=== PATIENT | male | born 1955 | race Caucasian/White ===

== ENCOUNTER 2024-04-08 21:26 | Emergency (ER) | payer OTHER, SELFPAY ==
[2024-04-08 21:51] VITALS: BP 164/78; PULSE 71; RESP 16; TEMP 36.4; O2SAT 97; BMI 27.8
--- NOTE | 2024-04-08 22:54 | ED.GENADULT ---
HPI - General Adult General Chief complaint: Back Injury/Pain Stated complaint: fell off steps/hurt back Time Seen by Provider: 04/08/24 22:53 History of Present Illness HPI narrative: slipped on concrete step while carries tools. fell down 2 steps. landed on back, left side. No head or neck pain. Some shortness of breath during pain spasms. Not on blood thinners. Happened around 7pm 68-year-old man presenting to the emergency department with concern of back pain. Appears to be having some spasms. Was caring tools slipped on concrete steps fell down a couple steps. Had a specific area of impact in the left low back area. Denies hitting head or neck and without pain there either. Does have history of chronic low back pain and status post I believe fusion of L4-5 per his description. This surgery was helpful. He notes that with the initial fall he just laid there for some time before he could mobilize. Walked into the emergency department somewhat hunched over. Has been having spasms of pain which during exam he admits are improving a little bit through the right low mid back around to the side. No hematuria is noted. They are planning a trip leaving it a week? for [place] and I believe [place]. Are concerned about being able to tolerate this adventure. This fall occurred about 4 hours prior to this evaluation. Did take 800 mg of ibuprofen around that time. Related Data Home Medications ?Medication ?Instructions ?Recorded ?Confirmed No Known Home Medications 04/08/24 04/08/24 Allergies Allergy/AdvReac Type Severity Reaction Status Date / Time fenoprofen Allergy Unknown Verified 04/09/24 00:20 Sulfa drugs Allergy Unknown Uncoded 04/09/24 00:20 Review of Systems Status of ROS: Reports: 6 or more systems reviewed and unremarkable except as noted in History and below Exam Narrative: Exam Narrative: Mr. Lopez appears little tremulous. Little flushed in his face initially. This all faded is a little bit during this interview/exam. Head looks to be atraumatic. Neck is supple. Back is nontender. Vaguely uncomfortable to palpation though in the right lower ribs. Not discretely tender/no point tenderness. Oppositional compression does not listed further pain. Is breathing easily at this time and lungs would appear to be clear. Examination of the lower back is without pain over the SI joint areas. There is a low well-healed midline surgical scar in the lumbar spine. He has a half softball size quite firm swelling in the left upper buttock. Tender to palpation here. Some central bruising/erythema. Well demarcated. No abdominal pain to palpation otherwise. Const: Vital Signs, click to edit/add: Vital Signs - 24 hr 04/08/24 21:51 04/09/24 00:46 Temperature 97.5 F L Pulse Rate [Left P ulse Oximeter] 71 62 Respiratory Rate 16 16 Blood Pressure [Ri t Upper Arm] 164/78 H 141/80 H Pulse Oximetry 97 97 Oxygen Delivery Me thod Room Air Room Air Documenting provider has reviewed patient's vital signs: yes Course Vital Signs Vital signs: Initial Vital Signs Temperature 97.5 F L 04/08/24 21:51 Temperature Source Temporal Artery Scan 04/08/24 21:51 Pulse Rate 71 04/08/24 21:51 Pulse Rhythm Regular 04/08/24 21:51 Respiratory Rate 16 04/08/24 21:51 Blood Pressure 164/78 H 04/08/24 21:51 Blood Pressure Mean 106 H 04/08/24 21:51 Blood Pressure Position Sitting 04/08/24 21:51 Pulse Oximetry 97 04/08/24 21:51 Oxygen Delivery Method Room Air 04/08/24 21:51 Vital Signs Temperature 97.5 F L 04/08/24 21:51 Pulse Rate 71 04/08/24 21:51 Respiratory Rate 16 04/08/24 21:51 Blood Pressure 164/78 H 04/08/24 21:51 Pulse Oximetry 97 04/08/24 21:51 Oxygen Delivery Method Room Air 04/08/24 21:51 Temperature 97.5 F L 04/08/24 21:51 Pulse Rate 62 04/09/24 00:46 Respiratory Rate 16 04/09/24 00:46 Blood Pressure 141/80 H 04/09/24 00:46 Pulse Oximetry 97 04/09/24 00:46 Oxygen Delivery Method Room Air 04/09/24 00:46 Medications Administered Medications: Generic Name Dose Route Start Last Admin Trade Name Freq PRN Reason Stop Dose Admin Sodium Chloride 1,000 mls @ 1,000 mls/hr 04/08/24 23:18 04/09/24 00:25 0.9 % Sodium Chloride 1000 Ml IV 04/09/24 00:17 1,000 mls/hr .Q1H ONE Administration Medical Decision Making MDM Narrative Medical decision making narrative: I reassured that use able to walk in although sounds as though he has struggled with pain and rather tolerant over the years. Certainly may have a pelvic fracture somewhere. Clearly has a hematoma. Would be helpful to know if there is active continued bleeding here. Would be helpful to know if there is a fracture in the pelvis/6 considering also their trip. Doubtful that there is anything of operable significance without more significant or radicular symptoms. He does appear to be having spasms of pain around the right low low to mid back which are lessening. Would collect urinalysis. And did offer IV contrasted pelvic CT. IV will be placed and will do this imaging. IV fluids. Did offer pain management but here prefer to defer at this time. CT scan with IV contrast reviewed by me does show hematoma as expected in the left gluteal area. I cannot see any pelvic fractures. Postoperative changes noted. Pending Radiology over-read. TECHNIQUE: Multiplanar CT examination of the pelvis was performed after the administration of 97 mL Isovue 370 intravenous contrast. COMPARISON: None. FINDINGS: Visualized kidneys/ureters/bladder: Partially visualized kidneys appear within normal limits. The visualized ureters appear within normal limits. The bladder is within normal limits. Pelvis: Prostatomegaly. Visualized bowel: No bowel wall thickening or bowel obstruction. Nonvisualized appendix. No significant colonic diverticulosis. Mild colonic stool burden. Vasculature: No aortic aneurysm. Trace atherosclerotic calcifications. Lymph nodes: No pathologic lymphadenopathy by size criteria. Peritoneum: No free fluid or pneumoperitoneum. No drainable fluid collections. No pelvic sidewall hematoma. Abdominal wall/soft tissues: There is heterogeneous hyperdense collection measuring 6.3 x 2.9 cm in the superficial soft tissues overlying the left posterior gluteal region (2:62). Bones: Status post posterior instrumented fusion of L4-L5 with decompressive laminectomy at L4. Mild multilevel degenerative changes of the visualized lumbar spine. No acute fractures. Mild degeneration of the sacroiliac joints. No diastasis of the pubic symphysis. Mild degeneration of the hip joints. IMPRESSION: 6.3 x 2.3 cm acute hematoma within the left gluteal soft tissues without underlying pelvic fractures identified. No hemoperitoneum. Has not required further interventions in the emergency department. Lab Data Lab results reviewed: Yes I reviewed the patient's lab results Labs: Lab Results 04/08/24 04/09/24 Range/Units 23:31 00:45 Urine Color Yellow (Yellow) Urine Appearance Clear (Clear) Urine pH 5.5 (5.0-8.5) Ur Specific [place] 1.015 (1.000-1.030) Urine Protein Negative (Negative) Urine Glucose (UA) Negative (Negative) Urine Ketones Negative (Negative) Urine Blood Negative (Negative) Urine Nitrite Negative (Negative) Urine Bilirubin Negative (Negative) Urine Urobilinogen 0.2 (0.2-1.0) Ur Leukocyte Esterase Negative (Negative) Urine RBC 0-2 (0-2) Urine WBC 0-2 (0-5) Ur Squamous Epith Cells Few (None-Few) Urine Bacteria None (None) POC Creatinine 1.3 (0.6-1.3) mg/dl Discharge Plan Discharge Clinical Impression: Hematoma, Muscle spasm Patient Disposition: Home w/ Parent or Adult Condition: Stable Additional Instructions: Over the next couple of days consider an ice pack to the areas that hurt. I like the ice bags with the screwtop lid you can feel with a tray of ice cubes and water. Can probably then transition to warm packs to help mobilize fluid. Return/be seen for clearly increasing and persistent swelling, persistent and worsening pain, increasing redness and heat of the skin, fever, uncontrolled pain. As you know you can take up to 800 mg of ibuprofen or up to 1000 mg of acetaminophen per dose. Alternative to the ibuprofen might be up to 500 mg naproxen twice daily. Otherwise [place] and cyclobenzaprine from [facility]. Remember that each tablet of [place] contains 325 mg of acetaminophen Prescriptions: No Action No Known Home Medications Follow Up/Referrals: Marcus Bonner MD [Primary Care Provider] - Stand Alone Forms: [employer] Info Instructions
--- NOTE | 2024-04-08 23:17 | CRLHL7_ITS ---
For Patients: As a result of the Century Cures Act, medical imaging exams and procedure reports are released immediately into your electronic medical record. You may view this report before your referring provider. If you have questions, please contact your health care provider. INDICATION: Abdominal pain. TECHNIQUE: Multiplanar CT examination of the pelvis was performed after the administration of 97 mL Isovue 370 intravenous contrast. COMPARISON: None. FINDINGS: Visualized kidneys/ureters/bladder: Partially visualized kidneys appear within normal limits. The visualized ureters appear within normal limits. The bladder is within normal limits. Pelvis: Prostatomegaly. Visualized bowel: No bowel wall thickening or bowel obstruction. Nonvisualized appendix. No significant colonic diverticulosis. Mild colonic stool burden. Vasculature: No aortic aneurysm. Trace atherosclerotic calcifications. Lymph nodes: No pathologic lymphadenopathy by size criteria. Peritoneum: No free fluid or pneumoperitoneum. No drainable fluid collections. No pelvic sidewall hematoma. Abdominal wall/soft tissues: There is heterogeneous hyperdense collection measuring 6.3 x 2.9 cm in the superficial soft tissues overlying the left posterior gluteal region (2:62). Bones: Status post posterior instrumented fusion of L4-L5 with decompressive laminectomy at L4. Mild multilevel degenerative changes of the visualized lumbar spine. No acute fractures. Mild degeneration of the sacroiliac joints. No diastasis of the pubic symphysis. Mild degeneration of the hip joints. IMPRESSION: 6.3 x 2.3 cm acute hematoma within the left gluteal soft tissues without underlying pelvic fractures identified. No hemoperitoneum. Please note that all CT scans at this facility use dose modulation, iterative reconstruction, and/or weight-based dosing when appropriate to reduce radiation dose to as low as reasonably achievable. Dictated by Min Palacios MD @ 04/09/2024 1:14:47 AM (Electronically Signed)
[2024-04-08 23:38] LABS: Creatinine, Point-of-Care* 1.3 mg/dl (0.6-1.3)
[2024-04-09] MEDS: 0.9 % SODIUM CHLORIDE 1000 ml 1,000 ML IV (00:25)
[2024-04-09 00:46] VITALS: BP 141/80; PULSE 62; RESP 16; O2SAT 97
[2024-04-09 00:54] LABS: Appearance Urine Clear (Clear); Bilirubin Urine Negative (Negative); Blood Urine Negative (Negative); Color Urine Yellow (Yellow); Glucose Urine Negative (Negative); Ketones Urine Negative (Negative); Leukocyte Esterase Urine Negative (Negative); Nitrite Urine Negative (Negative); Protein Urine Negative (Negative); Specific Gravity Urine 1.015 (1.000-1.030); Urobilinogen Urine 0.2 (0.2-1.0); pH Urine 5.5 (5.0-8.5)
[2024-04-09 01:04] LABS: RBC Urine 0-2 (0-2); Squamous Epithelial Cell Urine Few (None-Few); WBC Urine 0-2 (0-5)
== END 2024-04-09 01:49 | disposition home or self-care (01) ==
PROVIDERS: Emergency Provider Family Medicine; PCP Family Medicine
DX: S30.0XXA Contusion of lower back and pelvis, initial encounter (principal); M62.830 Muscle spasm of back; W18.30XA Fall on same level, unspecified, initial encounter
CPT/HCPCS: 72193; 81001; 82565; 96360; 99284; 99285; J7030; Q9967